=== PATIENT | female | born 1940 | race Caucasian/White ===

== ENCOUNTER 2021-05-23 09:09 | Outpatient (CLI) | payer MEDICARE | END 2021-05-23 09:10 | disposition home or self-care (01) | LOC: CSHWCC 09:09 | PROVIDERS: ATTEND Nurse Practitioner Family | DX: L98.494 Non-pressure chronic ulcer of skin of other sites with necrosis of bone (principal); E03.8 Other specified hypothyroidism; F32.9 Major depressive disorder, single episode, unspecified; F42.4 Excoriation (skin-picking) disorder; I10 Essential (primary) hypertension; I87.2 Venous insufficiency (chronic) (peripheral); I89.0 Lymphedema, not elsewhere classified; M86.38 Chronic multifocal osteomyelitis, other site; R60.0 Localized edema | CPT/HCPCS: 97139; G0463; 99212 ==

== ENCOUNTER 2023-05-17 07:51 | Outpatient (CLI) | payer MEDICARE | END 2023-05-17 07:52 | disposition home or self-care (01) | LOC: CSHMRI 07:51 | PROVIDERS: ATTEND Nurse Practitioner Family | DX: M47.22 Other spondylosis with radiculopathy, cervical region (principal); M48.02 Spinal stenosis, cervical region; Z98.1 Arthrodesis status; N39.0 Urinary tract infection, site not specified; R35.0 Frequency of micturition | CPT/HCPCS: 72141; 81001; 87077; 87086; 87186 ==

== ENCOUNTER 2024-08-25 10:03 | Outpatient (CLI) | payer MEDICARE | END 2024-08-25 10:04 | disposition home or self-care (01) | LOC: CSHMAMMO 10:03 | PROVIDERS: ATTEND Internal Medicine Endocrinology, Diabetes & Metabolism | DX: M81.8 Other osteoporosis without current pathological fracture (principal); M85.831 Other specified disorders of bone density and structure, right forearm | CPT/HCPCS: 77080 ==